=== PATIENT | female | born 1965 | race Two or more races ===

== ENCOUNTER → 2017-08-22 | Outpatient (CLI) | payer BC ==
--- NOTE | 2017-08-23 09:31 | RAD ---
EXAM: MAMMO JARETH SCREENING BILATERAL. HISTORY: Screening. COMPARISON: None, baseline. FINDINGS: 2-D and 3-D tomosynthesis mammograms were obtained of both breasts in the CC and MLO projections. Computer-aided detection (CAD) was utilized. The breast parenchyma shows scattered fibroglandular densities. Breast parenchyma level B. No dominant suspicious mass, suspicious microcalcifications, or architectural distortion is identified. Benign lucent centered calcification can be seen involving the lower outer left breast. IMPRESSION: No evidence of malignancy. BI-RADS CATEGORY: 2 BENIGN FINDING RECOMMENDED FOLLOW-UP: 12M 12 MONTH FOLLOW-UP PQRS compliance statement: Patient information was entered into a reminder system with a target due date for the next mammogram. Mammography is a sensitive method for finding small breast cancers, but it does not detect them all and is not a substitute for careful clinical examination. A negative mammogram does not negate a clinically suspicious finding and should not result in delay in biopsying a clinically suspicious abnormality. "Our facility is accredited by the [employer] Mammography Program."
== END | disposition home or self-care (01) ==
LOC: MAMMO 12:58
PROVIDERS: ATTEND Physician Assistant
DX: Z12.31 Encounter for screening mammogram for malignant neoplasm of breast (principal)
CPT/HCPCS: 77063; 77067

== ENCOUNTER → 2017-09-27 | Day surgery (SDC) | payer BC ==
[~2017-09-27] MED LIST: CHOL500016 PO; CYAN10005 PO; FENO160T PO; LIDOCAINE 1% PF 2 ML VIAL. ID PRN; LIDOCAINE 2% 20 ML VIAL. ONE; NALT1TAB PO; PROPOFOL 10,000 MCG/ML (20ML) VIAL IV ONE
[2017-09-27] MEDS: IV RINGERS SOLUTION,LACTATED 1,000 ML IV SCH (13:18)
[2017-09-27 14:10] VITALS: BP 152/98
== END ==
LOC: EDBD → SURG 12:21
PROVIDERS: ATTEND Internal Medicine Gastroenterology
DX: Z12.11 Encounter for screening for malignant neoplasm of colon (principal); K63.5 Polyp of colon; K57.30 Diverticulosis of large intestine without perforation or abscess without bleeding; K64.8 Other hemorrhoids; F32.9 Major depressive disorder, single episode, unspecified; E78.00 Pure hypercholesterolemia, unspecified; Z88.8 Allergy status to other drugs, medicaments and biological substances; Z90.49 Acquired absence of other specified parts of digestive tract; Z98.890 Other specified postprocedural states; Z83.71 Family history of colonic polyps
CPT/HCPCS: 45380; J2704; J7120; J2001

== ENCOUNTER → 2018-06-20 | Outpatient (CLI) | payer BC ==
[2017-09-27 14:10] VITALS: BP 152/98
[~2018-06-20] MED LIST changes: -LIDOCAINE 1% PF 2 ML VIAL. ID PRN; -LIDOCAINE 2% 20 ML VIAL. ONE; -PROPOFOL 10,000 MCG/ML (20ML) VIAL IV ONE
--- NOTE | 2018-06-20 11:51 | RAD ---
PQRS Compliance statement: One or more of the following individualized dose reduction techniques were utilized for this examination: 1. Automated exposure control. 2. Adjustment of the mA and/or kV according to patient size. 3. Use of iterative reconstruction technique. Indication:RIGHT FLANK PAIN WITH HEMATURIA TECHNIQUE: CT abdomen and pelvis without IV contrast with multiplanar reformats. COMPARISON: None FINDINGS: Limited evaluation of solid abdominal and pelvic organs due to lack of IV contrast. Heart is normal in size. No pericardial or pleural effusion. Clear lung bases. Noncontrast appearance of the liver, spleen, pancreas, adrenals within normal limits. Status post cholecystectomy. Simple cyst is seen in the right kidney measuring 2 cm. Punctate nonobstructing stone is seen in the left kidney. No free pelvic fluid or ascites. No bowel obstruction. Normal appendix. Status post hysterectomy. Urinary bladder is within normal limits. Left parasagittal lower abdominal/upper pelvic wall hernia is seen with herniation of the omental fat with neck of the hernia measuring 2 cm wide. No pneumoperitoneum. No suspicious bony lesion. IMPRESSION: Limited evaluation of solid abdominal and pelvic organs due to lack of IV contrast. 1. Punctate nonobstructing stone in the left kidney. 2. Anterior left parasagittal pelvic wall hernia as described above. Electronically signed by: Rafi Gandara DO (06/20/2018 11:48 AM) [facility]
== END | disposition home or self-care (01) ==
LOC: CT 11:09
PROVIDERS: ATTEND Nurse Practitioner Family
DX: K40.90 Unilateral inguinal hernia, without obstruction or gangrene, not specified as recurrent (principal); N28.1 Cyst of kidney, acquired; Z90.49 Acquired absence of other specified parts of digestive tract; Z90.710 Acquired absence of both cervix and uterus
CPT/HCPCS: 74176

== ENCOUNTER → 2018-07-05 | Outpatient (CLI) | payer BC ==
[2017-09-27 14:10] VITALS: BP 152/98
--- NOTE | 2018-07-05 09:49 | RAD ---
ABDOMEN COMPLETE History: Right kidney cyst, parasagittal hernia Comparison: June 20, [address] abdomen pelvis exam Findings: Multiple sonographic images of the abdomen are submitted. There has been cholecystectomy. Abdominal aortic caliber is within normal limits up to 1.7 cm. Inferior vena cava is not well visualized due to bowel gas. Pancreas is not well visualized due to bowel gas. Right kidney measured 10.1 x 5.6 x 4.3 cm. Left kidney measured 10.5 x 5.7 x 5.2 cm. There is no hydronephrosis of either kidney. There is a hypoechoic lesion of the superior right kidney about 1.8 x 1.4 x 1.6 cm with increased through transmission. Spleen measured 12.4 x 11.7 x 9.5 cm. Common bile duct is within normal limits about 0.5 cm. Right lobe of the liver measured 16.1 cm longitudinal. Impression: 1. There is superior right renal cyst. 2. There has been cholecystectomy. Electronically signed by: Valente Garcia MD (07/05/2018 9:47 AM) [id number]
== END | disposition home or self-care (01) ==
LOC: US 07:53
PROVIDERS: ATTEND Nurse Practitioner Family
DX: N28.1 Cyst of kidney, acquired (principal); K45.8 Other specified abdominal hernia without obstruction or gangrene; Z90.49 Acquired absence of other specified parts of digestive tract
CPT/HCPCS: 76700